=== PATIENT | female | born 1965 | race Caucasian/White ===

== ENCOUNTER → 2020-06-18 | Outpatient (CLI) | payer BC ==
--- NOTE | 2020-07-16 08:53 | REP ---
LUMBAR SPINE SERIES: CLINICAL: Radiculopathy. TECHNIQUE: AP, lateral, coned down views of the lumbosacral spine. FINDINGS: Alignment and lordosis maintained. Vertebral bodies are intact. No acute fracture/compression injury or subluxation. Age related changes include facet arthropathy at L4 through S1. Disc spaces are relatively well-maintained. The neural foramen appear patent. IMPRESSION: Age related changes of the lower lumbar spine cannot be excluded. If the patient remains symptomatic, consider MRI for further investigation. MTDD
== END ==
LOC: M ADAMS 10:40
PROVIDERS: ATTEND Physician Assistant
DX: M54.17 Radiculopathy, lumbosacral region (principal)